=== PATIENT | male | born 1965 | race African-American/Black ===

== ENCOUNTER 2018-01-28 04:40 | Inpatient (IN) | payer OTHER ==
[~2018-01-28] VITALS: Ht 177.8 cm; Wt 79.0 kg
[2018-01-28] MEDS ORDERED: SODIUM CHLORIDE FLUSH 10ML SYR IVF ONE (05:30)
[2018-01-28] MEDS ORDERED: ASPIRIN 81 MG TABLET CHEW PO ONE (05:30)
[2018-01-28] MEDS ORDERED: ASPIRIN 81 MG TABLET CHEW ONE (05:34)
[2018-01-28] MEDS ORDERED: ONDA8TAB9 PO (05:54)
[2018-01-28] MEDS ORDERED: MELA300T PO (05:54)
[2018-01-28] MEDS ORDERED: NALT50TA PO (05:54)
[2018-01-28] MEDS ORDERED: METF500T17 PO (05:54)
[2018-01-28] MEDS ORDERED: TURM1POW2 PO (05:54)
[2018-01-28] MEDS ORDERED: OMEG1CAP23 PO (05:54)
[2018-01-28 06:00] LABS: BASOPHILS # (AUTO) 0.02 x10^3/uL (0-0.1); BASOPHILS % (AUTO) 0 % (0-1); EOSINOPHILS # (AUTO) 0.03 x10^3/uL (0-0.4); EOSINOPHILS % (AUTO) 1 % (1-7); LYMPHOCYTES # (AUTO) 1.08 x10^3/uL (1-3.4); LYMPHOCYTES % (AUTO) 20 % (22-44); MD NO; MEAN CORPUSCULAR HGB CONC 33.6 g/dL (33.2-36.2); MEAN CORPUSCULAR VOLUME 92.3 fL (81-97); MEAN PLATELET VOLUME 8.7 fL (7.4-10.4); MONOCYTES # (AUTO) 0.32 x10^3/uL (0.2-0.8); MONOCYTES % (AUTO) 6 % (2-9); NEUTROPHILS # (AUTO) 4.02 x10^3/uL (1.8-6.8); NEUTROPHILS % (AUTO) 74 % (42-75); PLATELET COUNT 311 x10^3/uL (130-400); RED CELL DISTRIBUTION WIDTH 13.7 % (9.4-14.8)
[2018-01-28 06:02] LABS: ALANINE AMINOTRANSFERASE 19 U/L (12-78); ALBUMIN 3.6 g/dL (3.4-5.0); ANION GAP 8 mmol/L (5-15); CALCIUM 8.3 mg/dL (8.5-10.1); CHLORIDE 103 mmol/L (98-107); CREATININE 1.39 mg/dL (0.7-1.3)
[2018-01-28 06:07] LABS: ALKALINE PHOSPHATASE 56 U/L (45-117); BILIRUBIN,TOTAL 0.4 mg/dL (0.2-1.0); TOTAL PROTEIN 7.3 g/dL (6.4-8.2); TROPONIN I < 0.015 ng/mL (0.000-0.045)
[2018-01-28] MEDS ORDERED: morphine SULFATE 10 MG/ML, 1ML IVPush PRN (08:30)
[2018-01-28] MEDS ORDERED: HYDROcodone/APAP 5/325 TABLET PO PRN (08:30)
[2018-01-28] MEDS ORDERED: POLYETHYLENE GLYCOL 17 GM PACKET PO PRN (08:30)
[2018-01-28] MEDS ORDERED: LABETALOL 5MG/ML, 20ML IVPush PRN (08:30)
[2018-01-28] MEDS ORDERED: ENALAPRILAT 1.25 MG/ML, 2ML IV PRN (08:30)
[2018-01-28] MEDS ORDERED: ENOXAPARIN 40 MG/0.4 ML SQ SCH (08:30)
[2018-01-28] MEDS ORDERED: ACETAMINOPHEN 325 MG TABLET PO PRN (08:30)
[2018-01-28] MEDS ORDERED: AMLODIPINE 5 MG TABLET PO ONE (08:30)
[2018-01-28] MEDS ORDERED: ONDANSETRON 2MG/ML, 2ML IVPush PRN (08:30)
[2018-01-28] MEDS ORDERED: hydrALAzine 20 MG/ML, 1ML IV PRN (08:30)
[2018-01-28] MEDS ORDERED: DOCUSATE 100 MG CAPSULE PO PRN (08:30)
[2018-01-28] MEDS ORDERED: OMEGA-3/FISH OIL CAPSULE PO SCH (09:00)
[2018-01-28 09:14] VITALS: BP 153/105
[2018-01-28] MEDS ORDERED: NS + 20MEQ KCL 1,000 ML IV SCH (09:30)
[2018-01-28 12:32] LABS: CHOL/HDL RATIO 2.2; CHOLESTEROL, TOTAL 111 mg/dL (140-239); HDL CHOL % 46 % (26-37); HDL CHOLESTEROL (DIRECT) 51 mg/dL (40-60); LDL CHOLESTEROL,CALCULATED 49 mg/dL (54-169); TRIGLYCERIDES 54 mg/dL (50-200); TROPONIN I < 0.015 ng/mL (0.000-0.045); VLDL CHOLESTEROL 11 mg/dL (0-25)
[2018-01-28 12:46] VITALS: BP 157/110
[2018-01-28] MEDS ORDERED: METOPROLOL TARTRATE 25 MG TABLET PO SCH (15:30)
[2018-01-28 15:55] VITALS: BP 129/85
[2018-01-28] MEDS ORDERED: LISI5TAB7 PO (17:33)
[2018-01-28] MEDS ORDERED: METO25TA35 PO (17:33)
[2018-01-29] MEDS ORDERED: LISINOPRIL 5 MG TABLET PO SCH (09:00)
== END 2018-01-28 18:16 | disposition home or self-care (01) | DRG 313 ==
LOC: ED 07:47 → EDIP 07:48 → ED 07:49 → 5SO 09:05
PROVIDERS: ADMIT Internal Medicine; ATTEND Family Medicine
DX: R07.89 Other chest pain (principal); I10 Essential (primary) hypertension; C67.9 Malignant neoplasm of bladder, unspecified; Z82.49 Family history of ischemic heart disease and other diseases of the circulatory system; R00.2 Palpitations
CPT/HCPCS: 36415; 71045; 78452; 80053; 80061; 84484; 85025; 93005; 93017; 99285; G0378; J1650; J3480; A9502; C9898